=== PATIENT | male | born 1965 | race Caucasian/White ===

== ENCOUNTER 2016-04-07 15:06 | Inpatient (IN) | payer MEDICARE, MEDICAID ==
[~2016-04-07] VITALS: Ht 175.3 cm; Wt 112.5 kg
[2016-04-07] MEDS ORDERED: MORPHINE SULFATE INJ 4 MG/ML DISP.SYRIN ONE ×2 (15:28→16:25)
[2016-04-07] MEDS ORDERED: IV NS 0.9% 500 ML IV ONE (15:28)
[2016-04-07] MEDS ORDERED: IV SET PRIMARY 1 EA INFUS.SET MC ONE (15:28)
[2016-04-07] MEDS ORDERED: ONDANSETRON HCL/PF 4 MG/2 ML VIAL ONE (15:28)
[2016-04-07] MEDS ORDERED: ONDANSETRON HCL/PF 4 MG/2 ML VIAL IVP ONE (15:30)
[2016-04-07] MEDS ORDERED: IV NS 0.9% 500 ML BAG IV ONE (15:30)
[2016-04-07] MEDS ORDERED: MORPHINE SULFATE INJ 2 MG/ML DISP.SYRIN IV ONE (15:30)
[2016-04-07] MEDS ORDERED: MAG30ORA PO (15:37)
[2016-04-07] MEDS ORDERED: PANT40TA4 PO (15:37)
[2016-04-07] MEDS ORDERED: TIZA4TAB4 PO (15:37)
[2016-04-07] MEDS ORDERED: HYDR2TAB35 PO (15:37)
[2016-04-07] MEDS ORDERED: HYDR-548 PO (15:37)
[2016-04-07] MEDS ORDERED: BACL10TA PO (15:37)
[2016-04-07] MEDS ORDERED: DOCU-270 PO (15:37)
[2016-04-07] MEDS ORDERED: METH1ADH6 TP (15:37)
[2016-04-07] MEDS ORDERED: LUBI24CA7 PO (15:37)
[2016-04-07] MEDS ORDERED: GABA-534 PO (15:37)
[2016-04-07] MEDS ORDERED: POLY17PO4 PO (15:37)
[2016-04-07] MEDS ORDERED: BISA10SU8 RC (15:37)
[2016-04-07] MEDS ORDERED: MELA3TAB PO (15:37)
[2016-04-07] MEDS ORDERED: LORA10TA7 PO (15:37)
[2016-04-07] MEDS ORDERED: TRAZ-144 PO (15:37)
[2016-04-07] MEDS ORDERED: SENN8.6T6 PO (15:37)
[2016-04-07] MEDS ORDERED: MAGN400O6 PO (15:38)
[2016-04-07] MEDS ORDERED: NA P133E RC (15:38)
[2016-04-07 15:39] LABS: BASOPHILS # (AUTO) 0.1 /CMM (0.0-0.2); BASOPHILS % (AUTO) 0.7 % (0.0-2.0); DIFF TOTAL % 100 %; EOSINOPHILS # (AUTO) 0.1 /CMM (0.0-0.7); EOSINOPHILS % (AUTO) 1.2 % (0.0-6.0); HEMATOCRIT 47 % (39-51); HEMOGLOBIN 15.9 g/dL (13.5-17.5); LYMPHOCYTES # (AUTO) 1.4 /CMM (0.8-4.8); MEAN CORPUSCULAR HEMOGLOBIN 29 PG (26.0-33.0); MEAN CORPUSCULAR HGB CONC 34 g/dl (31.0-36.0); MEAN CORPUSCULAR VOLUME 85 fL (80-96); MONOCYTES # (AUTO) 0.4 /CMM (0.1-1.30); MONOCYTES % (AUTO) 5.6 % (2.0-12.0); NEUTROPHILS # (AUTO) 5.6 /CMM (1.8-8.9); NEUTROPHILS % (AUTO) 73.5 % (43.0-81.0); PLATELET COUNT (AUTO) 245 /CMM (150-450); RED BLOOD CELL COUNT(AUTO) 5.46 MIL/uL (4.5-6.0); WHITE BLOOD COUNT (AUTO) 7.6 K/uL (4.3-11.0)
[2016-04-07 15:48] LABS: ANION GAP 12 (5-14); CALCIUM, SERUM 9.1 mg/dL (8.5-10.1); CARBON DIOXIDE 27 mmol/L (21-32); CHLORIDE 104 mmol/L (98-107); CREATININE 1.3 mg/dL (0.6-1.3); GFR 59 mL/min (>60); GLUCOSE 114 mg/dL (74-106); POTASSIUM 4.1 mmol/L (3.5-5.1); SODIUM SERUM 139 mmol/L (136-145); UREA NITROGEN, BLOOD 18 mg/dL (7-18)
[2016-04-07 15:52] LABS: INR 0.97 (0.87-1.13); PROTHROMBIN TIME 10.2 SECS (9.5-12.7)
[2016-04-07 15:58] LABS: TROPONIN I < 0.017 ng/mL (0.00-0.056)
[2016-04-07] MEDS ORDERED: MORPHINE SULFATE INJ 10 MG/ML DISP.SYRIN IV ONE (16:30)
[2016-04-07 17:30] VITALS: BP 123/73
[2016-04-07] MEDS ORDERED: IV NS 0.9% 1,000 ML IV PRN (17:30)
[2016-04-07] MEDS ORDERED: ACETAMINOPHEN 325 MG TABLET PO PRN (17:30)
[2016-04-07] MEDS ORDERED: ONDANSETRON HCL/PF 4 MG/2 ML VIAL IVP PRN (17:30)
[2016-04-07] MEDS ORDERED: ZOLPIDEM TARTRATE 5 MG TABLET PO PRN (17:30)
[2016-04-07] MEDS ORDERED: HYDROCODONE/APAP 5/325MG 1 EACH TABLET PO PRN (17:30)
[2016-04-07] MEDS ORDERED: MAG HYDROX/AL HYDROX/SIMETH 30 ML UDC PO PRN (17:30)
[2016-04-07] MEDS ORDERED: MAGNESIUM HYDROXIDE 30 ML UDC PO PRN (17:30)
[2016-04-07] MEDS ORDERED: Z GUARD REMEDY 2 OZ OINT TP PRN (17:30)
[2016-04-07] MEDS ORDERED: BISACODYL SUPP (10 MG) 10 MG/SUPP.RECT SUPP.RECT RC PRN (18:00)
[2016-04-07] MEDS ORDERED: LORATADINE 10 MG TABLET PO PRN (18:00)
[2016-04-07] MEDS ORDERED: NA PHOS,M-B/NA PHOS,DI-BA 1 EA ENEMA RC PRN (18:00)
[2016-04-07] MEDS ORDERED: HYDROMORPHONE HCL 2 MG TABLET PO PRN (18:00)
[2016-04-07] MEDS ORDERED: IV SET PRIMARY PUMP SET 1 EA INFUS.SET MC ONE (18:27)
[2016-04-07] MEDS: GABAPENTIN 300 MG CAPSULE PO SCH (18:39)
[2016-04-07] MEDS: ENOXAPARIN SODIUM 40 MG/0.4 ML DISP.SYRIN SQ SCH (18:41)
[2016-04-07 20:00] VITALS: BP 127/83
[2016-04-07] MEDS: TIZANIDINE HCL 4 MG TABLET PO SCH (21:00)
[2016-04-07] MEDS: HYDROMORPHONE 1 MG/1 ML DISP.SYRIN IV PRN (21:21)
[2016-04-07] MEDS: TRAZODONE 50 MG TABLET PO SCH (21:25)
[2016-04-08] VITALS: BP 127/56
[2016-04-08] MEDS: GABAPENTIN 300 MG CAPSULE PO SCH ×5 (00:15→21:59)
[2016-04-08] MEDS: HYDROMORPHONE 1 MG/1 ML DISP.SYRIN IV PRN ×3 (01:45→22:00)
[2016-04-08 04:00] VITALS: BP 113/48
[2016-04-08] MEDS: TIZANIDINE HCL 4 MG TABLET PO SCH ×3 (05:00→21:59)
[2016-04-08 07:19] LABS: BASOPHILS % (AUTO) 0.5 % (0.0-2.0); DIFF TOTAL % 100 %; EOSINOPHILS # (AUTO) 0.2 /CMM (0.0-0.7); EOSINOPHILS % (AUTO) 2.6 % (0.0-6.0); HEMATOCRIT 43 % (39-51); HEMOGLOBIN 14.5 g/dL (13.5-17.5); LYMPHOCYTES % (AUTO) 31.5 % (20.0-44.0); MEAN CORPUSCULAR HEMOGLOBIN 29 PG (26.0-33.0); MEAN CORPUSCULAR HGB CONC 34 g/dl (31.0-36.0); MEAN CORPUSCULAR VOLUME 86 fL (80-96); MONOCYTES # (AUTO) 0.4 /CMM (0.1-1.30); MONOCYTES % (AUTO) 6.1 % (2.0-12.0); NEUTROPHILS # (AUTO) 3.8 /CMM (1.8-8.9); NEUTROPHILS % (AUTO) 59.3 % (43.0-81.0); PLATELET COUNT (AUTO) 208 /CMM (150-450); RED BLOOD CELL COUNT(AUTO) 5.01 MIL/uL (4.5-6.0); WHITE BLOOD COUNT (AUTO) 6.5 K/uL (4.3-11.0)
[2016-04-08 07:57] LABS: CALCIUM, SERUM 8.4 mg/dL (8.5-10.1); CREATININE 1.1 mg/dL (0.6-1.3); PHOSPHORUS 3.6 mg/dL (2.5-4.9); POTASSIUM 3.9 mmol/L (3.5-5.1)
[2016-04-08 08:00] VITALS: BP 132/78
[2016-04-08] MEDS: BACLOFEN (10 MG) 10 MG TABLET PO SCH ×3 (08:22→17:23)
[2016-04-08] MEDS: SENNOSIDES 8.6 MG TABLET PO SCH ×2 (08:22→17:23)
[2016-04-08] MEDS: PANTOPRAZOLE 40 MG TABLET.DR PO SCH (08:22)
[2016-04-08] MEDS: DOCUSATE SODIUM 100 MG CAPSULE PO SCH ×2 (08:22→17:24)
[2016-04-08] MEDS: ASPIRIN 81 MG TAB.CHEW PO SCH (09:57)
[2016-04-08 12:00] VITALS: BP 118/48
[2016-04-08 16:00] VITALS: BP 131/77
[2016-04-08 20:00] VITALS: BP 129/77
[2016-04-08] MEDS: ENOXAPARIN SODIUM 40 MG/0.4 ML DISP.SYRIN SQ SCH (21:58)
[2016-04-08] MEDS: TRAZODONE 50 MG TABLET PO SCH (22:00)
[2016-04-09] VITALS: BP 126/91
[2016-04-09 04:00] VITALS: BP 126/74
[2016-04-09] MEDS: TIZANIDINE HCL 4 MG TABLET PO SCH ×3 (04:53→20:38)
[2016-04-09] MEDS: GABAPENTIN 300 MG CAPSULE PO SCH ×3 (06:00→17:46)
[2016-04-09] MEDS: HYDROMORPHONE 1 MG/1 ML DISP.SYRIN IV PRN ×2 (06:54→12:52)
[2016-04-09 08:00] VITALS: BP 172/55
[2016-04-09 08:04] LABS: BASOPHILS % (AUTO) 0.6 % (0.0-2.0); DIFF TOTAL % 100 %; EOSINOPHILS # (AUTO) 0.2 /CMM (0.0-0.7); EOSINOPHILS % (AUTO) 2.4 % (0.0-6.0); HEMATOCRIT 46 % (39-51); HEMOGLOBIN 15.3 g/dL (13.5-17.5); LYMPHOCYTES # (AUTO) 2.2 /CMM (0.8-4.8); LYMPHOCYTES % (AUTO) 30.6 % (20.0-44.0); MEAN CORPUSCULAR HEMOGLOBIN 29 PG (26.0-33.0); MEAN CORPUSCULAR HGB CONC 33 g/dl (31.0-36.0); MEAN CORPUSCULAR VOLUME 87 fL (80-96); MONOCYTES # (AUTO) 0.6 /CMM (0.1-1.30); MONOCYTES % (AUTO) 8.4 % (2.0-12.0); NEUTROPHILS # (AUTO) 4.1 /CMM (1.8-8.9); PLATELET COUNT (AUTO) 213 /CMM (150-450)
[2016-04-09 08:30] LABS: CALCIUM, SERUM 9.1 mg/dL (8.5-10.1); POTASSIUM 4.1 mmol/L (3.5-5.1)
[2016-04-09] MEDS ORDERED: REGADENOSON 0.4 MG/5 ML DISP.SYRIN IVP ONE (09:36)
[2016-04-09] MEDS: SENNOSIDES 8.6 MG TABLET PO SCH ×2 (10:50→17:46)
[2016-04-09] MEDS: BACLOFEN (10 MG) 10 MG TABLET PO SCH ×3 (10:50→17:46)
[2016-04-09] MEDS: DOCUSATE SODIUM 100 MG CAPSULE PO SCH ×2 (10:50→17:46)
[2016-04-09] MEDS: ASPIRIN 81 MG TAB.CHEW PO SCH (10:50)
[2016-04-09] MEDS: PANTOPRAZOLE 40 MG TABLET.DR PO SCH (10:50)
[2016-04-09 12:00] VITALS: BP 133/53
[2016-04-09 16:00] VITALS: BP_SYST 125; BP_DIAS 43; BP_DIAS 58
[2016-04-09 20:00] VITALS: BP 134/59
[2016-04-09] MEDS: ENOXAPARIN SODIUM 40 MG/0.4 ML DISP.SYRIN SQ SCH (20:42)
== END 2016-04-09 21:35 | DRG 313 ==
LOC: ER 15:08 → TELE1 17:27
PROVIDERS: ADMIT Internal Medicine; ATTEND Internal Medicine
DX: R07.89 Other chest pain (principal); E78.5 Hyperlipidemia, unspecified; G89.29 Other chronic pain; K21.9 Gastro-esophageal reflux disease without esophagitis; G62.9 Polyneuropathy, unspecified; E66.9 Obesity, unspecified; Z87.891 Personal history of nicotine dependence; Z87.442 Personal history of urinary calculi; Z68.36 Body mass index [BMI] 36.0-36.9, adult; E11.22 Type 2 diabetes mellitus with diabetic chronic kidney disease; I12.9 Hypertensive chronic kidney disease with stage 1 through stage 4 chronic kidney disease, or unspecified chronic kidney disease; F32.9 Major depressive disorder, single episode, unspecified; N18.9 Chronic kidney disease, unspecified; M48.00 Spinal stenosis, site unspecified; F44.4 Conversion disorder with motor symptom or deficit
CPT/HCPCS: 36415; 71010-TC; 80048-TC; 80061-TC; 83735-TC; 84100-TC; 84484-TC; 85025-TC; 85730-TC; 87081-TC; 93307-TC; A4606; A6253; A6403; A9502; J1170; J1650; J2270; J2405; J2785; J7030; J7040; Z7610

== ENCOUNTER 2017-01-09 18:56 | Inpatient (IN) | payer MEDICARE, MEDICAID ==
[~2017-01-09] VITALS: Ht 203.2 cm; Wt 135.2 kg
[~2017-01-09 18:56] MED LIST: BACL10TA PO; BISA10SU8 RC; DOCU-270 PO; GABA-534 PO; HYDR-548 PO; HYDR2TAB35 PO; LORA10TA7 PO; LUBI24CA7 PO; MAG30ORA PO; MAGN400O6 PO; MELA3TAB PO; METH1ADH6 TP; NA P133E RC; PANT40TA4 PO; POLY17PO4 PO; SENN8.6T6 PO; TIZA4TAB4 PO; TRAZ-144 PO
--- NOTE | 2017-01-09 19:06 | NUR ---
PATIENT WAS SENT BY DR. GALLAGHER VIA PRIVATE AMBULANCE FROM [facility] DT POSSIBLE PNEUMONIA. PATIENT RECEIVED AAO4. APPEARS IN NO APPARENT DISTRESS. RESPIRATION EVEN AND UNLABORED. AFEBRILE. PATIENT REPORTED OCCASIONAL COUGHS. NO CHEST PAIN. VSS
--- NOTE | 2017-01-09 19:08 | NUR ---
LEON AT BEDSIDE
[2017-01-09] MEDS ORDERED: TIZA4CAP PO (19:15)
[2017-01-09] MEDS ORDERED: NORT10CA PO (19:15)
[2017-01-09] MEDS ORDERED: BACL20TA PO (19:15)
--- NOTE | 2017-01-09 19:15 | NUR ---
started a saline lock on the left hand g20, blood drawn and sent to lab.
[2017-01-09] MEDS ORDERED: AZIT250T6 PO (19:17)
[2017-01-09] MEDS ORDERED: VANCOMYCIN 1 GM VIAL ONE (19:23)
[2017-01-09] MEDS ORDERED: ONDANSETRON HCL/PF 4 MG/2 ML VIAL ONE (19:23)
[2017-01-09] MEDS ORDERED: IPRATROPIUM NEB FS 0.5 MG/2.5 ML AMPUL.NEB ONE (19:25)
[2017-01-09] MEDS ORDERED: ALBUTEROL FS 2.5 MG/3 ML VIAL.NEB ONE (19:25)
[2017-01-09] MEDS ORDERED: methylPREDNISolone SOD SUCC 125 MG/2ML VIAL IV ONE (19:30)
[2017-01-09] MEDS ORDERED: IPRATROPIUM NEB FS 0.5 MG/2.5 ML AMPUL.NEB NEB ONE (19:30)
[2017-01-09] MEDS ORDERED: VANCOMYCIN 1 GM in IV D5W 250 ML IV ONE (19:30)
[2017-01-09] MEDS ORDERED: ALBUTEROL FS 2.5 MG/3 ML VIAL.NEB CONTNEB ONE (19:30)
[2017-01-09] MEDS ORDERED: IV NS 0.9% 500 ML BAG IV ONE (19:30)
[2017-01-09] MEDS ORDERED: ONDANSETRON HCL/PF 4 MG/2 ML VIAL IVP ONE (19:30)
[2017-01-09] MEDS ORDERED: PIPERACILLIN /TAZOBACTAM 4.5 G in IV D5W 50 ML IV ONE (19:30)
[2017-01-09] MEDS ORDERED: MORPHINE SULFATE INJ 2 MG/ML DISP.SYRIN IV ONE (19:30)
[2017-01-09] MEDS ORDERED: methylPREDNISolone SOD SUCC 125 MG/2ML VIAL ONE (19:48)
[2017-01-09] MEDS ORDERED: HYDROMORPHONE INJ 2 MG/ML DISP.SYRIN ONE (19:50)
[2017-01-09 19:55] LABS: BASOPHILS # (AUTO) 0.1 /CMM (0.0-0.2); BASOPHILS % (AUTO) 0.9 % (0.0-2.0); EOSINOPHILS # (AUTO) 0.1 /CMM (0.0-0.7); EOSINOPHILS % (AUTO) 1.5 % (0.0-6.0); HEMATOCRIT 46 % (39-51); HEMOGLOBIN 15.4 g/dL (13.5-17.5); LYMPHOCYTES # (AUTO) 2.5 /CMM (0.8-4.8); LYMPHOCYTES % (AUTO) 27.8 % (20.0-44.0); MEAN CORPUSCULAR HEMOGLOBIN 29 PG (26.0-33.0); MEAN CORPUSCULAR HGB CONC 34 g/dl (31.0-36.0); MEAN CORPUSCULAR VOLUME 86 fL (80-96); MONOCYTES # (AUTO) 0.6 /CMM (0.1-1.30); MONOCYTES % (AUTO) 6.3 % (2.0-12.0); NEUTROPHILS # (AUTO) 5.6 /CMM (1.8-8.9); NEUTROPHILS % (AUTO) 63.5 % (43.0-81.0); PLATELET COUNT (AUTO) 277 /CMM (150-450); RDW COEFFICIENT OF VARIATION 12.3 (11.5-15.0); RED BLOOD CELL COUNT(AUTO) 5.34 MIL/uL (4.5-6.0); WHITE BLOOD COUNT (AUTO) 8.9 K/uL (4.3-11.0)
[2017-01-09] MEDS ORDERED: HYDROMORPHONE 1 MG/1 ML DISP.SYRIN IV ONE (20:00)
[2017-01-09 20:17] LABS: CALCIUM, SERUM 9.3 mg/dL (8.5-10.1); CARBON DIOXIDE 28 mmol/L (21-32); CHLORIDE 104 mmol/L (98-107); CREATININE 1.1 mg/dL (0.6-1.3); GLUCOSE 112 mg/dL (74-106); SODIUM SERUM 141 mmol/L (136-145); UREA NITROGEN, BLOOD 18 mg/dL (7-18)
[2017-01-09 20:19] LABS: TROPONIN I < 0.017 ng/mL (0.00-0.056)
[2017-01-09 20:22] LABS: ALANINE AMINOTRANSFERASE 46 U/L (12-78); ALBUMIN 3.9 g/dL (3.4-5.0); ALKALINE PHOSPHATASE 71 U/L (46-116); ASPARTATE AMINOTRANSFERASE 23 U/L (15-37); BILIRUBIN,DIRECT 0.1 mg/dL (0.0-0.2); BILIRUBIN,TOTAL 0.8 mg/dL (0.2-1.0); TOTAL PROTEIN, SERUM 7.3 g/dL (6.4-8.2)
--- NOTE | 2017-01-09 20:48 | NUR ---
DR PADGETT WAS PAGED
[2017-01-09 21:00] VITALS: BP 123/72
--- NOTE | 2017-01-09 21:13 | NUR ---
DAYRON MALLOY WAS PAGED FOR PANEL
--- NOTE | 2017-01-09 21:18 | NUR ---
TELE ROOM 320-1
--- NOTE | 2017-01-09 21:33 | NUR ---
Report given to Ajit ORTIZ for tele admission and carla.
--- NOTE | 2017-01-09 21:40 | NUR ---
transferred patient to tele bed 313-1 via [facility] protocol, no incident noted.
[2017-01-09] MEDS ORDERED: MORPHINE SULFATE INJ 10 MG/ML DISP.SYRIN ONE (22:34)
[2017-01-09] MEDS: MORPHINE SULFATE INJ 2 MG/ML DISP.SYRIN IV PRN (22:50)
[2017-01-09] MEDS ORDERED: MAGNESIUM HYDROXIDE 30 ML UDC PO PRN (23:00)
[2017-01-09] MEDS ORDERED: MAG HYDROX/AL HYDROX/SIMETH 30 ML UDC PO PRN (23:00)
[2017-01-09] MEDS ORDERED: BISACODYL SUPP (10 MG) 10 MG/SUPP.RECT SUPP.RECT RC PRN (23:00)
[2017-01-09] MEDS ORDERED: NA PHOS,M-B/NA PHOS,DI-BA 1 EA ENEMA RC PRN (23:00)
[2017-01-09] MEDS ORDERED: LORATADINE 10 MG TABLET PO PRN (23:00)
[2017-01-09] MEDS ORDERED: Medication Not On Formulary EA (Melatonin 3 MG) PO PRN (23:00)
[2017-01-09] MEDS ORDERED: HYDROCODONE/APAP 10/325MG 1 EA TABLET PO PRN (23:00)
[2017-01-09] MEDS ORDERED: ACETAMINOPHEN 325 MG TABLET PO PRN (23:30)
[2017-01-09] MEDS ORDERED: ZOLPIDEM TARTRATE 5 MG TABLET PO PRN (23:30)
[2017-01-09] MEDS ORDERED: ONDANSETRON HCL/PF 4 MG/2 ML VIAL IVP PRN (23:30)
[2017-01-10] VITALS: BP 128/75
[2017-01-10] MEDS: ALBUTEROL FS 2.5 MG/0.5 ML VIAL.NEB NEB SCH ×5 (00:17→19:20)
[2017-01-10] MEDS: IPRATROPIUM NEB FS 0.5 MG/2.5 ML AMPUL.NEB NEB SCH ×4 (00:20→19:20)
[2017-01-10] MEDS ORDERED: methylPREDNISolone SOD SUCC 125 MG/2ML VIAL ONE (00:38)
[2017-01-10] MEDS ORDERED: GABAPENTIN 300 MG CAPSULE ONE ×2 (00:39→06:05)
[2017-01-10 00:52] LABS: ABG BASE EXCESS 2.7 mmol/L; ABG OXYGEN SATURATION 95.9 % (92.0-98.5); ABG PCO2 50.4 mmHg (35.0-45.0); ABG PH 7.377 (7.350-7.450); ABG PO2 88.5 mmHg (75.0-100.0); AaDO2 109.7 mmHg; COHb 0.7 % (0.5-1.5); O2Hb 94.3 % (94.0-97.0); SITE, ABG Right Radial; VENT MODE, BG 3 L NC
[2017-01-10] MEDS: GABAPENTIN 300 MG CAPSULE PO SCH ×5 (01:19→23:50)
[2017-01-10] MEDS: methylPREDNISolone SOD SUCC 125 MG/2ML VIAL IV SCH ×4 (01:19→16:07)
[2017-01-10 04:00] VITALS: BP 126/74
[2017-01-10] MEDS ORDERED: GUAIFENESIN/CODEINE 10 ML UDC PO PRN (05:00)
[2017-01-10] MEDS ORDERED: TIZANIDINE HCL 4 MG TABLET ONE (05:51)
[2017-01-10] MEDS: TIZANIDINE HCL 4 MG TABLET PO SCH ×4 (05:52→21:51)
[2017-01-10] MEDS ORDERED: MORPHINE SULFATE INJ 10 MG/ML DISP.SYRIN ONE (06:03)
[2017-01-10] MEDS: MORPHINE SULFATE INJ 2 MG/ML DISP.SYRIN IV PRN (06:07)
--- NOTE | 2017-01-10 06:34 | NUR ---
PECAN PICKER NOTES AWAKE & RESPONSIVE. NOT IN ANY DISTRESS. NO SOB NOTED. DENIES ANY PAIN OR DISCOMFORT AT THIS TIME. ON TELE SR @ 75 WITH IV-HL PATENT & INTACT. MONITORED ACCORDINGLY. CALL LIGHT WITHIN REACH. BED IN LOWEST POSITION. SR UP X 3 FOR SAFETY WITH BED ALARM ON. WILL ENDORSE TO NEXT SHIFT.
[2017-01-10 07:14] LABS: HEMATOCRIT 44 % (39-51); HEMOGLOBIN 14.8 g/dL (13.5-17.5); LYMPHOCYTES # (AUTO) 0.9 /CMM (0.8-4.8); LYMPHOCYTES % (AUTO) 14.5 % (20.0-44.0); MEAN CORPUSCULAR HEMOGLOBIN 29 PG (26.0-33.0); MEAN CORPUSCULAR HGB CONC 34 g/dl (31.0-36.0); MEAN CORPUSCULAR VOLUME 86 fL (80-96); MONOCYTES % (AUTO) 0.6 % (2.0-12.0); NEUTROPHILS # (AUTO) 5.1 /CMM (1.8-8.9); NEUTROPHILS % (AUTO) 84.9 % (43.0-81.0); PLATELET COUNT (AUTO) 228 /CMM (150-450); RDW COEFFICIENT OF VARIATION 13.2 (11.5-15.0); RED BLOOD CELL COUNT(AUTO) 5.07 MIL/uL (4.5-6.0); WHITE BLOOD COUNT (AUTO) 6.1 K/uL (4.3-11.0)
--- NOTE | 2017-01-10 07:20 | NUR ---
RN OPEN NOTES RECEIVED REPORT FROM QUALITY CONTROLLER NURSE. PATIENT IS IN BED. PATIENT IS ALERT AND ORIENTED TO NAME, PLACE AND TIME. NO SIGNS AND SYMPTOMS OF DISTRESS. WILL CONTINUE TO MONITOR AND ASSESS PATIENT THROUGH OUT MY SHIFT
[2017-01-10] MEDS: PANTOPRAZOLE 40 MG TABLET.DR PO SCH (07:30)
[2017-01-10 07:37] LABS: ALBUMIN 3.5 g/dL (3.4-5.0); BILIRUBIN,TOTAL 0.7 mg/dL (0.2-1.0); CALCIUM, SERUM 9.4 mg/dL (8.5-10.1); CREATININE 1.1 mg/dL (0.6-1.3); POTASSIUM 4.3 mmol/L (3.5-5.1)
[2017-01-10 08:00] VITALS: BP 125/76
--- NOTE | 2017-01-10 08:20 | NUR ---
DR GALLAGHER AT BEDSIDE
[2017-01-10] MEDS ORDERED: METHYL SALICYLATE TP SCH (09:00)
[2017-01-10] MEDS ORDERED: MENTHOL TP SCH (09:00)
[2017-01-10] MEDS: GUAIFENESIN LA 600 MG TABLET.SA PO SCH ×2 (09:06→21:51)
[2017-01-10] MEDS: DOCUSATE SODIUM 100 MG CAPSULE PO SCH ×2 (09:06→16:07)
[2017-01-10] MEDS: BACLOFEN (10 MG) 10 MG TABLET PO SCH ×3 (09:06→16:09)
[2017-01-10] MEDS: SENNOSIDES 8.6 MG TABLET PO SCH ×2 (09:07→16:09)
[2017-01-10] MEDS: AZITHROMYCIN 250 MG TABLET PO SCH (09:07)
[2017-01-10] MEDS: HYDROMORPHONE INJ 2 MG/ML DISP.SYRIN IV PRN ×2 (14:07→22:04)
[2017-01-10] MEDS ORDERED: K PHOS NEUTRAL 250 MG TABLET PO ONE (15:30)
[2017-01-10 16:00] VITALS: BP 122/76
[2017-01-10] MEDS: NORTRIPTYLINE HCL 10 MG CAPSULE PO SCH (17:36)
--- NOTE | 2017-01-10 18:39 | NUR ---
RN CLOSING NOTES PATIENT IS ALERT AND ORIENTED TO NAME, PLACE AND TIME. NO SIGNS AND SYMPTOMS OF DISTRESS. IV SITE IS INTACT AND PATENT. BED IN LOW POSITION, LOCKED AND TWO SIDE RAILS ARE UP. CALL LIGHT WITHIN REACH FOR SAFETY. ALL NURSING CARE ANTICIPATED AND ATTENDED FOR. REPOSITIONED Q2HR. PATIENT REMAINED DRY AND CLEAN. WILL ENDORSE TO CANVASSING MANAGER NURSE
--- NOTE | 2017-01-10 19:25 | NUR ---
RN OPEN NOTES RECEIVED PATIENT AWAKE IN BED WITH FAMILY AT BEDSIDE. A/O X4. NO SIGNS OF DISTRESS OR DISCOMFORT. BREATHING EVEN AND UNLABORED. IV ACCESS IN L HAND PATENT AND INTACT, NO SIGNS OF REDNESS OR INFILTRATION. BED IN LOW LOCKED POSITION WITH SIDE RAILS X2. CALL LIGHT WITHIN REACH. WILL CONTINUE TO MONITOR.
[2017-01-10 20:00] VITALS: BP 131/73
[2017-01-10] MEDS ORDERED: TRAZODONE 50 MG TABLET PO SCH (22:00)
--- NOTE | 2017-01-10 22:04 | NUR ---
RN NOTES ADMINISTERED DILAUDID .25 MG ORDERED FOR PAIN 8/10 IN LEFT LOWER/UPPER EXTREMITY. VSS. WILL CONTINUE TO MONITOR.
[2017-01-11] MEDS: IPRATROPIUM NEB FS 0.5 MG/2.5 ML AMPUL.NEB NEB SCH ×4 (01:37→19:30)
[2017-01-11] MEDS: ALBUTEROL FS 2.5 MG/0.5 ML VIAL.NEB NEB SCH ×4 (01:37→19:30)
[2017-01-11] MEDS: HYDROMORPHONE INJ 2 MG/ML DISP.SYRIN IV PRN ×2 (04:24→15:23)
--- NOTE | 2017-01-11 04:24 | NUR ---
RN NOTES ADMINISTERED DILAUDID .25 MG ORDERED FOR GENERALIZED PAIN 10/10 FROM THE NECK DOWN. VSS. WILL CONTINUE TO MONITOR.
[2017-01-11] MEDS: TIZANIDINE HCL 4 MG TABLET PO SCH ×4 (05:31→20:47)
[2017-01-11] MEDS ORDERED: GABAPENTIN 300 MG CAPSULE ONE (05:57)
[2017-01-11] MEDS: GABAPENTIN 300 MG CAPSULE PO SCH ×4 (06:16→23:41)
[2017-01-11] MEDS: PANTOPRAZOLE 40 MG TABLET.DR PO SCH ×2 (06:18→08:41)
--- NOTE | 2017-01-11 06:37 | NUR ---
RN CLOSING NOTES PATIENT AWAKE IN BED. A/O X4. NO SIGNS OF DISTRESS OR DISCOMFORT. BREATHING EVEN AND UNLABORED. ON 2LPM O2 VIA NC. IV ACCESS IN L HAND PATENT AND INTACT, NO SIGNS OF REDNESS OR INFILTRATION. STATES PAIN 5/10 AND IS TOLERABLE AT THIS TIME. ALL NEEDS MET. NO SIGNIFICANT CHANGES THROUGH THE NIGHT. BED IN LOW LOCKED POSITION WITH SIDE RAILS X2. CALL LIGHT WITHIN REACH. WILL ENDORSE TO AM SHIFT FOR JOCELYN.
--- NOTE | 2017-01-11 07:20 | NUR ---
RN OPEN NOTES RECEIVED REPORT FROM TUBE TESTER NURSE. PATIENT IS IN BED, AWAKE, ALERT AND ORIENTED TO NAME, PLACE AND TIME. NO SIGNS AND SYMPTOMS OF DISTRESS. DENIED PAIN. WILL CONTINUE TO MONITOR AND ASSES PATIENT THROUGH OUT MY SHIFT
[2017-01-11 08:00] VITALS: BP 124/78
[2017-01-11] MEDS: GUAIFENESIN LA 600 MG TABLET.SA PO SCH ×2 (08:41→20:47)
[2017-01-11] MEDS: BACLOFEN (10 MG) 10 MG TABLET PO SCH ×3 (08:41→17:33)
[2017-01-11] MEDS: SENNOSIDES 8.6 MG TABLET PO SCH ×2 (08:41→17:32)
[2017-01-11] MEDS: methylPREDNISolone SOD SUCC 125 MG/2ML VIAL IV SCH ×2 (08:41→17:32)
[2017-01-11] MEDS: AZITHROMYCIN 250 MG TABLET PO SCH (08:41)
[2017-01-11] MEDS: DOCUSATE SODIUM 100 MG CAPSULE PO SCH ×2 (08:41→17:32)
--- NOTE | 2017-01-11 14:00 | NUR ---
PATIENT TRANSFERRED FROM FROM [facility]- TO [facility]-
[2017-01-11 16:00] VITALS: BP 137/82
[2017-01-11] MEDS: NORTRIPTYLINE HCL 10 MG CAPSULE PO SCH (17:33)
--- NOTE | 2017-01-11 18:43 | NUR ---
RN CLOSING NOTES PATIENT IS ALERT AND ORIENTED TO NAME, PLACE AND TIME. NO SIGNS AND SYMPTOMS OF DISTRESS. IV SITE IS INTACT AND PATENT. BED IN LOW POSITION, LOCKED AND TWO SIDE RAILS ARE UP. CALL LIGHT WITHIN REACH FOR SAFETY. ALL NURSING CARE ANTICIPATED AND ATTENDED FOR. REPOSITIONED Q2HR. PATIENT REMAINED DRY AND CLEAN. WILL ENDORSE TO UPTWIST SPINNER NURSE
--- NOTE | 2017-01-11 19:30 | NUR ---
RN NOTES RECEIVED PATIENT IN BED AWAKE, AO X 3, ABLE TO MAKE NEEDS KNOWN. NO ACUTE DISTRESS NOTED. DENIES ANY PAIN AT THIS TIME. IV SITE PATENT, INTACT; FLUSHED. SAFETY REMINDERS GIVEN. ON LOW BED WITH BILATERAL UPPER SIDE RAILS UP. CALL LIGHT WITHIN EASY REACH. WILL CONTINUE TO MONITOR.
[2017-01-11 20:00] VITALS: BP 141/100
[2017-01-11 20:33] VITALS: BP 141/100
[2017-01-12] MEDS: ALBUTEROL FS 2.5 MG/0.5 ML VIAL.NEB NEB SCH ×3 (02:06→13:01)
[2017-01-12] MEDS: IPRATROPIUM NEB FS 0.5 MG/2.5 ML AMPUL.NEB NEB SCH ×3 (02:06→13:01)
[2017-01-12] MEDS: GABAPENTIN 300 MG CAPSULE PO SCH ×2 (05:25→13:02)
[2017-01-12] MEDS: TIZANIDINE HCL 4 MG TABLET PO SCH ×2 (05:25→13:38)
--- NOTE | 2017-01-12 06:07 | NUR ---
RN NOTES PATIENT ASLEEP, EASILY AROUSABLE. RESPIRATIONS EVEN. NO SIGNS OF PAIN NOTED. NO SYMPTOMS OF HYPER/HYPOGLYCEMIA. DUE MEDS GIVEN WITH NO ASE NOTED. NEEDS ATTENDED. SAFETY PRECAUTIONS AND COMFORT MEASURES IN PLACE. WILL GIVE REPORT TO DAY SHIFT FOR CONTINUITY OF CARE.
[2017-01-12 08:00] VITALS: BP 140/72
[2017-01-12] MEDS: methylPREDNISolone SOD SUCC 125 MG/2ML VIAL IV SCH (09:19)
[2017-01-12] MEDS: GUAIFENESIN LA 600 MG TABLET.SA PO SCH (09:19)
[2017-01-12] MEDS: AZITHROMYCIN 250 MG TABLET PO SCH (09:19)
[2017-01-12] MEDS: DOCUSATE SODIUM 100 MG CAPSULE PO SCH (09:20)
[2017-01-12] MEDS: SENNOSIDES 8.6 MG TABLET PO SCH (09:20)
[2017-01-12] MEDS: BACLOFEN (10 MG) 10 MG TABLET PO SCH ×2 (09:20→13:38)
[2017-01-12] MEDS: PANTOPRAZOLE 40 MG TABLET.DR PO SCH (09:22)
--- NOTE | 2017-01-12 14:30 | NUR ---
AT BEDSIDE ALL DAY. IN AND DISCHARGE ORDER WRITTEN.ALL PAPERWORK SIGNED,INCLUDING BELONGING LIST.DRIVERS HERE,GIVEN REPORT,REPORT CALLED TO FACILITY.TAKEN VIA AMB. TO FACILITY.
== END 2017-01-12 14:50 | DRG 190 ==
LOC: ER 18:57 → TELE 21:24 → MED 01-10 22:31
PROVIDERS: ADMIT Internal Medicine; ATTEND Internal Medicine
DX: J44.0 Chronic obstructive pulmonary disease with (acute) lower respiratory infection (principal); J15.9 Unspecified bacterial pneumonia; G62.9 Polyneuropathy, unspecified; J44.1 Chronic obstructive pulmonary disease with (acute) exacerbation; R07.89 Other chest pain; M48.00 Spinal stenosis, site unspecified; E78.5 Hyperlipidemia, unspecified; E11.9 Type 2 diabetes mellitus without complications; E66.9 Obesity, unspecified; F17.200 Nicotine dependence, unspecified, uncomplicated; G89.29 Other chronic pain; I10 Essential (primary) hypertension; Z87.442 Personal history of urinary calculi; K21.9 Gastro-esophageal reflux disease without esophagitis; Z79.899 Other long term (current) drug therapy; Z98.1 Arthrodesis status; Z68.32 Body mass index [BMI] 32.0-32.9, adult
CPT/HCPCS: 36415; 36600; 71010-TC; 80048-TC; 80053-TC; 80076-TC; 82803-TC; 83605-TC; 83735-TC; 84100-TC; 84484-TC; 85025-TC; 87040-TC; 87081-TC; 93307-TC; 94799-TC; A4606; A6403; J1170; J2270; J2405; J2543; J2930; J3370; J7040; J7060; Z7610

== ENCOUNTER 2017-05-14 13:43 | Outpatient (CLI) | payer MEDICARE, MEDICAID ==
[~2017-05-14 13:43] MED LIST changes: -BACL10TA PO; +BACL20TA PO; -HYDR2TAB35 PO; +LUBI24CA5 PO; -LUBI24CA7 PO; +NORT10CA PO; +SENN-167 PO; -SENN8.6T6 PO; +TIZA4CAP PO
== END 2017-05-14 23:59 | disposition home or self-care (01) ==
LOC: MSC 13:43
PROVIDERS: ATTEND Anesthesiology
DX: M47.12 Other spondylosis with myelopathy, cervical region (principal); G89.29 Other chronic pain; M79.2 Neuralgia and neuritis, unspecified; G82.20 Paraplegia, unspecified; G47.30 Sleep apnea, unspecified; M62.81 Muscle weakness (generalized)

== ENCOUNTER 2017-05-29 07:44 | Day surgery (SDC) | payer MEDICARE, MEDICAID ==
[~2017-05-29 07:44] MED LIST changes: -TRAZ-144 PO; +TRAZ-182 PO
[2017-05-29] MEDS ORDERED: LIDOCAINE 1% INJ 50 ML MDV IJ ONE (10:11)
[2017-05-29] MEDS ORDERED: methylPREDNISolone ACETATE 80 MG/ML VIAL ONE (10:11)
[2017-05-29] MEDS ORDERED: BUPIVACAINE 0.25% 75 MG/30 ML VIAL ONE (10:11)
== END 2017-05-29 11:00 ==
LOC: DS 07:44
PROVIDERS: ATTEND Anesthesiology
DX: M17.12 Unilateral primary osteoarthritis, left knee (principal); G47.30 Sleep apnea, unspecified; G82.20 Paraplegia, unspecified
CPT/HCPCS: 73560-TC; A6209; J1040; J3490; Z7610

== ENCOUNTER 2017-06-11 13:30 | Outpatient (CLI) | payer MEDICARE, MEDICAID | END 2017-06-11 23:59 | LOC: MSC 13:30 | PROVIDERS: ATTEND Anesthesiology | DX: M17.12 Unilateral primary osteoarthritis, left knee (principal); G89.29 Other chronic pain; M79.2 Neuralgia and neuritis, unspecified; M54.2 Cervicalgia; G82.20 Paraplegia, unspecified; R25.2 Cramp and spasm; M47.10 Other spondylosis with myelopathy, site unspecified; G47.30 Sleep apnea, unspecified; Z79.891 Long term (current) use of opiate analgesic ==

== ENCOUNTER 2017-07-16 13:00 | Outpatient (CLI) | payer MEDICARE, MEDICAID | END 2017-07-16 23:59 | LOC: MSC 13:00 | PROVIDERS: ATTEND Anesthesiology | DX: M17.12 Unilateral primary osteoarthritis, left knee (principal); M47.10 Other spondylosis with myelopathy, site unspecified; G82.20 Paraplegia, unspecified; R25.2 Cramp and spasm; G89.29 Other chronic pain; M79.2 Neuralgia and neuritis, unspecified; Z79.891 Long term (current) use of opiate analgesic; G47.30 Sleep apnea, unspecified ==

== ENCOUNTER 2017-09-13 08:45 | Outpatient (CLI) | payer MEDICARE, MEDICAID | END 2017-09-13 23:59 | LOC: MSC 08:45 | PROVIDERS: ATTEND Anesthesiology | DX: M79.2 Neuralgia and neuritis, unspecified (principal); G89.29 Other chronic pain; M47.10 Other spondylosis with myelopathy, site unspecified; G82.20 Paraplegia, unspecified; R25.2 Cramp and spasm; G47.30 Sleep apnea, unspecified; M17.12 Unilateral primary osteoarthritis, left knee; M25.562 Pain in left knee; M54.2 Cervicalgia; Z79.891 Long term (current) use of opiate analgesic; Z79.899 Other long term (current) drug therapy ==

== ENCOUNTER 2017-10-24 09:37 | Outpatient (CLI) | payer MEDICARE, MEDICAID | END 2017-10-24 23:59 | disposition home or self-care (01) | LOC: CT 09:37 | DX: E27.9 Disorder of adrenal gland, unspecified (principal); N20.0 Calculus of kidney; K80.20 Calculus of gallbladder without cholecystitis without obstruction; I70.90 Unspecified atherosclerosis; J98.11 Atelectasis; I10 Essential (primary) hypertension; E11.9 Type 2 diabetes mellitus without complications; J45.909 Unspecified asthma, uncomplicated | CPT/HCPCS: 74150-TC ==

== ENCOUNTER → 2017-11-12 | Outpatient (CLI) | payer MEDICARE, MEDICAID ==
[~2017-11-12] MED LIST changes: +HYDR-4354 PO; -HYDR-548 PO; -SENN-167 PO; +SENN-168 PO
== END ==
LOC: MSC 15:30
PROVIDERS: ATTEND Anesthesiology
DX: M79.2 Neuralgia and neuritis, unspecified (principal); G82.20 Paraplegia, unspecified; M17.12 Unilateral primary osteoarthritis, left knee; M47.10 Other spondylosis with myelopathy, site unspecified; M54.2 Cervicalgia; G89.29 Other chronic pain; R25.2 Cramp and spasm; G47.30 Sleep apnea, unspecified; Z79.891 Long term (current) use of opiate analgesic

== ENCOUNTER → 2018-03-04 | Outpatient (CLI) | payer MEDICARE, MEDICAID | LOC: MSC 14:30 | PROVIDERS: ATTEND Anesthesiology | DX: G89.29 Other chronic pain (principal); M50.31 Other cervical disc degeneration, high cervical region; G82.20 Paraplegia, unspecified; R25.2 Cramp and spasm; G47.30 Sleep apnea, unspecified; M51.26 Other intervertebral disc displacement, lumbar region; M47.10 Other spondylosis with myelopathy, site unspecified; M17.12 Unilateral primary osteoarthritis, left knee; M25.562 Pain in left knee; Z79.891 Long term (current) use of opiate analgesic; Z79.899 Other long term (current) drug therapy ==

== ENCOUNTER 2018-03-18 14:27 | Outpatient (CLI) | payer MEDICARE, MEDICAID | END 2018-03-18 23:59 | LOC: MSC 14:27 | PROVIDERS: ATTEND Anesthesiology | DX: M79.2 Neuralgia and neuritis, unspecified (principal); G89.29 Other chronic pain; M54.2 Cervicalgia; M47.10 Other spondylosis with myelopathy, site unspecified; G82.20 Paraplegia, unspecified; R25.2 Cramp and spasm; M17.12 Unilateral primary osteoarthritis, left knee; Z79.891 Long term (current) use of opiate analgesic ==

== ENCOUNTER → 2018-04-15 | Outpatient (CLI) | payer MEDICARE, MEDICAID | LOC: MSC 15:00 | PROVIDERS: ATTEND Anesthesiology | DX: G89.29 Other chronic pain (principal); M79.2 Neuralgia and neuritis, unspecified; R25.2 Cramp and spasm; G82.20 Paraplegia, unspecified; M17.12 Unilateral primary osteoarthritis, left knee; G47.30 Sleep apnea, unspecified; M47.10 Other spondylosis with myelopathy, site unspecified; Z79.891 Long term (current) use of opiate analgesic; M51.36 Other intervertebral disc degeneration, lumbar region; M51.37 Other intervertebral disc degeneration, lumbosacral region ==

== ENCOUNTER 2018-05-13 13:00 | Outpatient (CLI) | payer MEDICARE | END 2018-05-13 23:59 | LOC: MSC 13:00 | PROVIDERS: ATTEND Anesthesiology | DX: G89.29 Other chronic pain (principal); M79.2 Neuralgia and neuritis, unspecified; M17.12 Unilateral primary osteoarthritis, left knee; R25.2 Cramp and spasm; G82.20 Paraplegia, unspecified; M47.10 Other spondylosis with myelopathy, site unspecified; M54.2 Cervicalgia; Z79.899 Other long term (current) drug therapy ==

== ENCOUNTER 2018-06-09 11:22 | Inpatient (IN) | payer MEDICARE, MEDICAID ==
[~2018-06-09] VITALS: Ht 203.2 cm; Wt 128.8 kg
--- NOTE | 2018-06-09 11:25 | NUR ---
PT AARON FROM [facility] C/O GEN PAIN, PT AAOX4, PT ON MONITOR, VSS, PENDING MD SUAREZ
[2018-06-09] MEDS ORDERED: NITROGLYCERIN PACKET 1 GM PACKET ONE (11:44)
[2018-06-09] MEDS ORDERED: ASPIRIN 325 MG TABLET ONE (11:45)
[2018-06-09] MEDS ORDERED: HYDR-4354 PO (11:52)
[2018-06-09] MEDS ORDERED: METH500T PO (11:52)
[2018-06-09] MEDS ORDERED: ACET-2605 PO (11:52)
[2018-06-09] MEDS ORDERED: NORT25CA PO (11:52)
[2018-06-09] MEDS ORDERED: OMEG1CAP PO (11:52)
[2018-06-09] MEDS ORDERED: CALC500T63 PO (11:52)
[2018-06-09] MEDS ORDERED: HYDR28.316 RC (11:52)
[2018-06-09] MEDS ORDERED: LOSA50TA3 PO (11:52)
[2018-06-09] MEDS ORDERED: IPRA3AMP23 IH (11:52)
[2018-06-09] MEDS ORDERED: CHOL100099 PO (11:52)
[2018-06-09] MEDS ORDERED: CYAN500L3 PO (11:52)
[2018-06-09] MEDS ORDERED: NITR0.4T48 SL (11:52)
[2018-06-09] MEDS ORDERED: SACC250C PO (11:52)
[2018-06-09] MEDS ORDERED: ACET-868 PO (11:52)
[2018-06-09] MEDS ORDERED: FLUT16SP16 BNOSTRILS (11:52)
[2018-06-09] MEDS ORDERED: MAGN250T2 PO (11:52)
[2018-06-09 11:53] LABS: BASOPHILS # (AUTO) 0.1 /CMM (0.0-0.2); BASOPHILS % (AUTO) 0.9 % (0.0-2.0); HEMATOCRIT 47 % (39-51); HEMOGLOBIN 16.2 g/dL (13.5-17.5); LYMPHOCYTES # (AUTO) 2.4 /CMM (0.8-4.8); LYMPHOCYTES % (AUTO) 36.2 % (20.0-44.0); MEAN CORPUSCULAR HGB CONC 35 g/dl (31.0-36.0); MEAN CORPUSCULAR VOLUME 86 fL (80-96); MONOCYTES # (AUTO) 0.5 /CMM (0.1-1.30); MONOCYTES % (AUTO) 7.8 % (2.0-12.0); NEUTROPHILS # (AUTO) 3.5 /CMM (1.8-8.9); NEUTROPHILS % (AUTO) 52.1 % (43.0-81.0); PLATELET COUNT (AUTO) 225 /CMM (150-450); RED BLOOD CELL COUNT(AUTO) 5.44 MIL/uL (4.5-6.0); WHITE BLOOD COUNT (AUTO) 6.7 K/uL (4.3-11.0)
[2018-06-09] MEDS ORDERED: NITROGLYCERIN PACKET 1 GM PACKET TD ONE (12:00)
[2018-06-09] MEDS ORDERED: ASPIRIN 325 MG TABLET PO ONE (12:00)
[2018-06-09 12:05] LABS: CALCIUM, SERUM 9.2 mg/dL (8.5-10.1); CARBON DIOXIDE 27 mmol/L (21-32); CHLORIDE 103 mmol/L (98-107); GLUCOSE 113 mg/dL (74-106); POTASSIUM 4.4 mmol/L (3.5-5.1); SODIUM SERUM 139 mmol/L (136-145); UREA NITROGEN, BLOOD 19 mg/dL (7-18)
[2018-06-09 12:11] LABS: ALANINE AMINOTRANSFERASE 26 U/L (12-78); ALKALINE PHOSPHATASE 72 U/L (46-116); ASPARTATE AMINOTRANSFERASE 19 U/L (15-37); BILIRUBIN,DIRECT 0.2 mg/dL (0.0-0.2); BILIRUBIN,TOTAL 1.1 mg/dL (0.2-1.0); TOTAL PROTEIN, SERUM 7.2 g/dL (6.4-8.2)
--- NOTE | 2018-06-09 12:52 | NUR ---
CALLED [facility] AND REQUESTED DR TO . ENVELOPE PRESS OPERATOR DR AT BEDSIDE.
--- NOTE | 2018-06-09 13:00 | NUR ---
CALLED [facility] ASKED FOR A TELE BED.
--- NOTE | 2018-06-09 13:19 | NUR ---
TELE BED 111-2 GIVEN. ROMAN RN
--- NOTE | 2018-06-09 14:09 | NUR ---
TELE1/RN REPORT FROM ER REPORT GIVEN BY ER NURSE DEBORAH FOR PT TO BE ADMITTED FOR CHEST PAIN, UNDER THE CARE OF NP. KENDRICK. AWAITING FOR PT'S ARRIVAL.
[2018-06-09 14:15] VITALS: BP 150/66
--- NOTE | 2018-06-09 14:15 | NUR ---
TELE1/APPRENTICE/LINEMAN TO TELE1 - ROOM 111#2 PT ARRIVED TO UNIT VIA GURNEY FROM ER ACCOMPANIED BY ER NURSE DEBORAH AND CHORAL DIRECTOR. PT TRANSFERRED TO HOSPITAL BED. PT A/O X 4, COMPLAINT OF PAIN RATED 7-8/10 IN THE LEFT LEG, LOWER BACK, BACK SHOULDER AND LEFT HIP. ON O2 VIA N/C, SATURATING @ 97%, LUNG SOUNDS CLEAR. ON TELE BOX PLACED, SINUS RHYTHM WITH OCCASIONAL PVCs, NOTED SINUS MERLIN LOWEST AT 50. IV SITE, FLUSHED, PATENT WITH NO S/S OF INFECTION. PT HAS SEVERE LEFT SIDED WEAKNESS. PT WAS ORIENTED TO HIS SURROUNDINGS. AWAITING FOR ADMITTING ORDERS. CL WITHIN REACHED AND SAFETY MAINTAINED.
--- NOTE | 2018-06-09 14:20 | NUR ---
REPORT GIVEN TO CHELSEA ORTIZ FOR JOCELYN; PT WILL BE TRANSPORTED TO 1ST FLOOR VIA [facility]
[2018-06-09] MEDS ORDERED: MAGNESIUM HYDROXIDE 30 ML UDC PO PRN (14:30)
[2018-06-09] MEDS ORDERED: NA PHOS,M-B/NA PHOS,DI-BA 1 EA ENEMA RC PRN (14:30)
[2018-06-09] MEDS ORDERED: ZOLPIDEM TARTRATE 5 MG TABLET PO PRN (14:30)
[2018-06-09] MEDS ORDERED: CALCIUM CARBONATE 500 MG TAB.CHEW PO PRN (14:30)
[2018-06-09] MEDS ORDERED: ACETAMINOPHEN 325 MG TABLET PO PRN (14:30)
[2018-06-09] MEDS ORDERED: NITROGLYCERIN 0.4 MG/TAB BOTTLE SL PRN (14:30)
[2018-06-09] MEDS ORDERED: HYDROCORTISONE CR 30 GM TUBE RC PRN (14:30)
[2018-06-09] MEDS ORDERED: ONDANSETRON HCL/PF 4 MG/2 ML VIAL IVP PRN (14:30)
[2018-06-09] MEDS ORDERED: MAG HYDROX/AL HYDROX/SIMETH 30 ML UDC PO PRN (14:30)
[2018-06-09] MEDS ORDERED: ALBUTEROL FS 2.5 MG/3 ML VIAL.NEB NEB PRN (14:30)
[2018-06-09 16:00] VITALS: BP 150/66
[2018-06-09 16:03] VITALS: BP 150/60
--- NOTE | 2018-06-09 16:15 | NUR ---
TELE1/RN ROUNDS - DR. SHULTZ PT SEEN & EXAMINED BY DR. SHULTZ, WITH VERBAL ORDER RECEIVED AT BEDSIDE TO INCREASE DOSE OF NORTRIPTYLINE TO 50MG, NOTED AND CARRIED.
[2018-06-09] MEDS: LACTOBACILLUS RHAMNOSUS GG 1 EACH CAP.SPRINK PO SCH (16:55)
[2018-06-09] MEDS: PANTOPRAZOLE 40 MG TABLET.DR PO SCH (16:55)
[2018-06-09] MEDS: DOCUSATE SODIUM 100 MG CAPSULE PO SCH (16:56)
[2018-06-09] MEDS: BACLOFEN (10 MG) 10 MG TABLET PO SCH (16:56)
[2018-06-09] MEDS: TIZANIDINE HCL 4 MG TABLET PO SCH (16:56)
[2018-06-09] MEDS: MORPHINE SULFATE INJ 2 MG/ML DISP.SYRIN IV PRN ×2 (16:59→22:33)
[2018-06-09] MEDS: GABAPENTIN 300 MG CAPSULE PO SCH (17:00)
--- NOTE | 2018-06-09 19:26 | NUR ---
TELE1/RN AM SHIFT END NOTES ALL PT'S NEEDS WERE MET. NO ACUTE CHANGE OF CONDITION NOTED SINCE PT WAS ADMITTED TODAY. PT ENDORSED TO PM NURSE TO CONTINUE CARE. CL WITHIN REACHED AND SAFETY MAINTAINED.
[2018-06-09] MEDS: HYDROCODONE/APAP 5/325MG 1 EACH TABLET PO PRN (19:38)
[2018-06-09 20:00] VITALS: BP 136/74
[2018-06-09] MEDS: METHOCARBAMOL (500MG) 500 MG TABLET PO SCH (21:20)
[2018-06-09] MEDS: SENNOSIDES 8.6 MG TABLET PO SCH (21:20)
[2018-06-09] MEDS ORDERED: NORTRIPTYLINE HCL 25 MG CAPSULE PO SCH (22:00)
[2018-06-10] VITALS: BP 141/74
[2018-06-10] MEDS: GABAPENTIN 300 MG CAPSULE PO SCH ×5 (00:29→23:31)
[2018-06-10 04:00] VITALS: BP 149/67
[2018-06-10 07:25] LABS: BASOPHILS # (AUTO) 0.1 /CMM (0.0-0.2); BASOPHILS % (AUTO) 0.7 % (0.0-2.0); EOSINOPHILS % (AUTO) 2.8 % (0.0-6.0); HEMATOCRIT 45 % (39-51); HEMOGLOBIN 15.9 g/dL (13.5-17.5); LYMPHOCYTES # (AUTO) 2.3 /CMM (0.8-4.8); LYMPHOCYTES % (AUTO) 28.2 % (20.0-44.0); MEAN CORPUSCULAR HGB CONC 35 g/dl (31.0-36.0); MEAN CORPUSCULAR VOLUME 86 fL (80-96); MONOCYTES # (AUTO) 0.6 /CMM (0.1-1.30); MONOCYTES % (AUTO) 7.3 % (2.0-12.0); PLATELET COUNT (AUTO) 181 /CMM (150-450); RED BLOOD CELL COUNT(AUTO) 5.28 MIL/uL (4.5-6.0); WHITE BLOOD COUNT (AUTO) 8.1 K/uL (4.3-11.0)
[2018-06-10 07:34] LABS: CALCIUM, SERUM 8.8 mg/dL (8.5-10.1); CREATININE 0.9 mg/dL (0.6-1.3); MAGNESIUM 2.1 mg/dL (1.8-2.4); PHOSPHORUS 3.9 mg/dL (2.5-4.9); POTASSIUM 4.2 mmol/L (3.5-5.1)
[2018-06-10 08:00] VITALS: BP 129/64
[2018-06-10] MEDS: DOCUSATE SODIUM 100 MG CAPSULE PO SCH ×2 (08:07→16:55)
[2018-06-10] MEDS: ASPIRIN 81 MG TAB.CHEW PO SCH (08:07)
[2018-06-10] MEDS: LACTOBACILLUS RHAMNOSUS GG 1 EACH CAP.SPRINK PO SCH ×2 (08:07→16:55)
[2018-06-10] MEDS: PANTOPRAZOLE 40 MG TABLET.DR PO SCH (08:07)
[2018-06-10] MEDS: CHOLECALCIFEROL 1,000 UNIT TABLET (VIT D3) PO SCH (08:07)
[2018-06-10] MEDS: TIZANIDINE HCL 4 MG TABLET PO SCH ×3 (08:08→16:55)
[2018-06-10] MEDS: BACLOFEN (10 MG) 10 MG TABLET PO SCH ×3 (08:08→16:55)
[2018-06-10] MEDS: CYANOCOBALAMIN 500 MCG TABLET PO SCH (08:08)
[2018-06-10] MEDS: LOSARTAN POTASSIUM 50 MG TABLET PO SCH (08:09)
[2018-06-10] MEDS: METHOCARBAMOL (500MG) 500 MG TABLET PO SCH ×2 (08:09→20:03)
--- NOTE | 2018-06-10 08:15 | NUR ---
TELE1/RN AM NOTES RECEIVED PATIENT THIS MORNING WITH STABLE VITAL SIGNS, NO S/S OF DISTRESS, ADMINISTERED MORNING MEDICATIONS ORDERED AND UPDATED DR. KHALIL ON PATIENTS SINUS BRADYCARDIA OF [address] KHALIL TOLD TO ME MONITOR AND CONTINUE CARE
[2018-06-10] MEDS ORDERED: FLUTICASONE PROPIONATE 16 GM BOTTLE NS PRN (09:00)
--- NOTE | 2018-06-10 09:25 | NUR ---
WOUND CARE CONSULT: PT PRESENTS WITH LEFT SIDED WEAKNESS AND SHARP JAGGED TOENAILS, PRESENT ON ADMISSION. PT WEARING SPLINT ON LEFT WRIST. RECOMMENDATIONS MADE FOR SKIN PROTECTION. DISCUSSED WITH NURSING STAFF. PT STATES IS MOSTLY CONTINENT. CURRENT LANCE SCORE IS 17. BED EXTENSION REQUESTED FROM [facility]. WILL SEE PRN. IN AGREEMENT WITH PLAN OF CARE.
[2018-06-10] MEDS ORDERED: Z GUARD REMEDY 2 OZ OINT TP PRN (09:30)
--- NOTE | 2018-06-10 09:30 | NUR ---
TELE1/RN NOTES WOUND CARE NURSE LORI CAME AND ASSESSED PATIENT UPDATED SKIN CARE WITH Z GUARD PROTECTION
[2018-06-10] MEDS: MORPHINE SULFATE INJ 2 MG/ML DISP.SYRIN IV PRN ×3 (11:55→20:03)
--- NOTE | 2018-06-10 12:46 | NUR ---
TELE1/RNPM NOTES PATIENT HAD ECHOCARDIOGRAM AND EKG ORDERED SIGNED CONSENT FOR ANGIO W/ CONTRAST AND NEW 18 GAUGE IV WAS INSERTED IN THE RIGHT AC BY SENIOR TAX ANALYST WITH GOOD BLOOD RETURN NOTED NO S/S OF INFECTION OR INFILTRATION PATIENT TOLERATED ALL PROCEDURES WELL. CLIENT COMPLAINED OF PAIN 8/10 AND WAS GIVEN MORPHINE 4MG RE-ASSESSED PAIN AND FOUND IT TO BE 4/10 AND TOLERABLE FOR CLIENT.
[2018-06-10] MEDS ORDERED: CT SWABBABLE VALVE TRANS SET 1 EA INFUS.SET MC ONE (13:59)
[2018-06-10] MEDS ORDERED: IV NS 0.9% 250 ML IV ONE (13:59)
[2018-06-10] MEDS ORDERED: METOPROLOL TARTRATE INJ 5 MG/5 ML AMPUL ONE ×2 (13:59→14:23)
[2018-06-10] MEDS ORDERED: IOHEXOL-350 100 ML VIAL IV ONE (13:59)
--- NOTE | 2018-06-10 14:15 | NUR ---
MS1/RN OFF TO - CT ANGIOGRAM PT LEFT VIA BED FOR CT ANGIOGRAM IN STABLE CONDITION.
--- NOTE | 2018-06-10 14:24 | NUR ---
TELE1/RNECHOCARDIOGRAM ECHO WAS DONE AND EJECTION FRACTION WAS 60 CLIENT TOLERATED PROCEDURE WELL.
[2018-06-10] MEDS ORDERED: IV NS 0.9% 500 ML IV ONE (14:30)
--- NOTE | 2018-06-10 14:50 | NUR ---
MS1/RN BACK TO ROOM S/P CT ANGIOGRAM. PT RETURNED TO HIS ROOM. ADVISE PT TO INCREASE WATER INTAKE FLUSH OUT DYE FROM THE PROCEDURE. MONITORING.
[2018-06-10 15:51] VITALS: BP 121/68
--- NOTE | 2018-06-10 15:56 | NUR ---
TELE1/RN NOTES BOTH PRIMARY AND PAIN MANAGEMENT DOCTOR ARE WITH PATIENT SPEAKING ABOUT HIS TREATMENT PLAN.
[2018-06-10 16:00] VITALS: BP 121/68
--- NOTE | 2018-06-10 19:15 | NUR ---
MS/RN INITIAL NOTES RECEIVED PT IN BED, A/OX4. ON 2L O2 VIA NC, NO SOB NOTED. PT C/O PAIN ON BACK WITH PAIN SCALE OF 8/10. WILL ADMINISTER PAIN MEDS ORDERED. RHAND G18 HEPLOCK INTACT AND PATENT. SAFETY MEASURES IN PLACED. CALL LIGHT WITHIN REACH. PER AM RN ENDORSEMENT, PT IS FOR DC PLANNING IN AM, PT AWARE. WILL CONT TO MONITOR
--- NOTE | 2018-06-10 19:21 | NUR ---
MESURGE1/RN HAND OFF NOTES (PM) PATIENT WAS HANDED OFF TO NIGHT NURSE IN STABLE CONDITION EXPLAINED THAT DC IS SCHEDULED FOR TOMORROW AND TO COMPLETE DC PLANNING. CONTINUE CARE UNTIL DC. REPORTED LABORATORY RESULTS.
[2018-06-10 20:00] VITALS: BP 124/65
[2018-06-10] MEDS: SENNOSIDES 8.6 MG TABLET PO SCH (21:48)
[2018-06-10] MEDS: NORTRIPTYLINE HCL 25 MG CAPSULE PO SCH (21:48)
[2018-06-10] MEDS ORDERED: NORTRIPTYLINE HCL 25 MG CAPSULE PO SCH (22:00)
[2018-06-10] MEDS: HYDROCODONE/APAP 5/325MG 1 EACH TABLET PO PRN (23:31)
[2018-06-11 04:00] VITALS: BP 131/88
[2018-06-11] MEDS: MORPHINE SULFATE INJ 2 MG/ML DISP.SYRIN IV PRN ×2 (05:20→23:41)
[2018-06-11] MEDS: GABAPENTIN 300 MG CAPSULE PO SCH ×3 (05:20→17:22)
--- NOTE | 2018-06-11 07:01 | NUR ---
RN NOTES PT IN STABLE CONDITION. NO ACUTE CHANGES THROUGHOUT SHIFT. NO OVERT SIGNS OF BLEEDING NOTED. ALL NEEDS ANTICIPATED. SAFETY MEASURES OBSERVED AT ALL TIMES. ENDORSED TO AM RN FOR JOCELYN
[2018-06-11 07:13] LABS: CREATININE 0.9 mg/dL (0.6-1.3); MAGNESIUM 2.2 mg/dL (1.8-2.4); POTASSIUM 4.4 mmol/L (3.5-5.1)
--- NOTE | 2018-06-11 07:20 | NUR ---
MS/RN OPENING NOTES RECEIVED REPORT FROM NURSE. PT IN BED, A/OX4. ON 2L O2 VIA NC, NO SOB NOTED. PT C/O PAIN ON BACK . WILL ADMINISTER PAIN MEDS ORDERED. R HAND G18 HEPLOCK INTACT AND PATENT. SAFETY MEASURES IN PLACED. CALL LIGHT WITHIN REACH. SRX2.BED ALARM ON.WILL CONTINUE TO MONITOR.
[2018-06-11] MEDS: PANTOPRAZOLE 40 MG TABLET.DR PO SCH (07:42)
[2018-06-11 08:00] VITALS: BP 106/54
[2018-06-11] MEDS: CYANOCOBALAMIN 500 MCG TABLET PO SCH (08:58)
[2018-06-11] MEDS: TIZANIDINE HCL 4 MG TABLET PO SCH ×3 (08:59→16:18)
[2018-06-11] MEDS: LOSARTAN POTASSIUM 50 MG TABLET PO SCH (08:59)
[2018-06-11] MEDS: BACLOFEN (10 MG) 10 MG TABLET PO SCH ×3 (09:00→16:18)
[2018-06-11] MEDS: METHOCARBAMOL (500MG) 500 MG TABLET PO SCH ×2 (09:00→22:09)
[2018-06-11] MEDS: ASPIRIN 81 MG TAB.CHEW PO SCH (09:01)
[2018-06-11] MEDS: DOCUSATE SODIUM 100 MG CAPSULE PO SCH ×2 (09:02→16:18)
[2018-06-11] MEDS: CHOLECALCIFEROL 1,000 UNIT TABLET (VIT D3) PO SCH (09:02)
[2018-06-11] MEDS: LACTOBACILLUS RHAMNOSUS GG 1 EACH CAP.SPRINK PO SCH ×2 (09:03→16:18)
[2018-06-11] MEDS: HYDROCODONE/APAP 5/325MG 1 EACH TABLET PO PRN (14:11)
[2018-06-11 16:00] VITALS: BP 127/64
--- NOTE | 2018-06-11 16:00 | NUR ---
MS RN NOTE SEEN BY LIOR POLK ,UPDATED ABOUT PATIENT CONDITION WITH LABS.MADE AWARE THAT PATIENT NOT ON ANY DVT PROPHYLAXIS.GOT NEW ORDERS.WILL CONTINUE TO MONITOR.
--- NOTE | 2018-06-11 19:21 | NUR ---
MS/RN CLOSING NOTES PT IN BED, A/OX4. ON 2L O2 VIA NC, NO SOB NOTED. R HAND G18 HEPLOCK INTACT AND PATENT. SAFETY MEASURES IN PLACED. CALL LIGHT WITHIN REACH. SRX2.BED ALARM ON.ENDORSED TO PM NURSE FOR JOCELYN.
--- NOTE | 2018-06-11 19:40 | NUR ---
MACKENZIE RN OPENING NOTES RECEIVED BEDSIDE REPORT FROM AM NURSE. PT IS IN BED, A/OX4. ON 2L O2 VIA NC, NO SOB NOTED, PATIENT C/O PAIN ON BACK AND LEFT HIP . WILL ADMINISTER PAIN MEDS ORDERED. R HAND G18 HEPLOCK INTACT AND PATENT. SAFETY MEASURES IN PLACED. CALL LIGHT WITHIN REACH. SRX2.BED ALARM ON.WILL CONTINUE TO MONITOR PATIENT CLOSELY.
[2018-06-11 20:00] VITALS: BP 124/56
[2018-06-11 20:03] VITALS: BP 124/56
[2018-06-11] MEDS ORDERED: ENOXAPARIN SODIUM 40 MG/0.4 ML DISP.SYRIN SQ SCH (21:00)
[2018-06-11] MEDS: SENNOSIDES 8.6 MG TABLET PO SCH (22:08)
[2018-06-11] MEDS: NORTRIPTYLINE HCL 25 MG CAPSULE PO SCH (22:09)
[2018-06-12] MEDS: GABAPENTIN 300 MG CAPSULE PO SCH ×4 (00:41→17:35)
[2018-06-12 04:00] VITALS: BP 128/60
[2018-06-12 04:28] VITALS: BP 128/60
[2018-06-12 08:00] VITALS: BP 121/73
--- NOTE | 2018-06-12 08:28 | NUR ---
RN INITAL NOTES RECEIVED PT AWAKE AND ALERT, RESTING IN BED AND NOTED WITH GEN BODY PAIN BUT DENIES CHEST PAIN. NO SOB NOTED AT THIS TIME. SAFETY ENSURED AND WILL MONITOR.
[2018-06-12] MEDS: BACLOFEN (10 MG) 10 MG TABLET PO SCH ×3 (09:39→17:11)
[2018-06-12] MEDS: TIZANIDINE HCL 4 MG TABLET PO SCH ×3 (09:39→17:10)
[2018-06-12] MEDS: METHOCARBAMOL (500MG) 500 MG TABLET PO SCH (09:39)
[2018-06-12] MEDS: CHOLECALCIFEROL 1,000 UNIT TABLET (VIT D3) PO SCH (09:40)
[2018-06-12] MEDS: CYANOCOBALAMIN 500 MCG TABLET PO SCH (09:40)
[2018-06-12] MEDS: DOCUSATE SODIUM 100 MG CAPSULE PO SCH ×2 (09:41→17:11)
[2018-06-12] MEDS: LOSARTAN POTASSIUM 50 MG TABLET PO SCH (09:41)
[2018-06-12] MEDS: PANTOPRAZOLE 40 MG TABLET.DR PO SCH (09:41)
[2018-06-12] MEDS: LACTOBACILLUS RHAMNOSUS GG 1 EACH CAP.SPRINK PO SCH ×2 (09:41→17:14)
[2018-06-12] MEDS: HYDROCODONE/APAP 5/325MG 1 EACH TABLET PO PRN (12:43)
[2018-06-12 16:00] VITALS: BP_SYST 110; BP_SYST 128; BP_DIAS 57; BP_DIAS 78
--- NOTE | 2018-06-12 18:14 | NUR ---
CLOSING NOTES PT AWAKE , NO SIGNIFICANT CHANGE NOTED. NO CHEST PAIN. AWAITING FOR PICKUP, TO BE DISCHARGED TO [facility] AGRRED BY PT AND CM. ENDORSED FOR CONITNUITY OF CARE IN STABLE CONDITION
== END 2018-06-12 21:19 | DRG 206 ==
LOC: ER 11:25 → TELE1 13:25 → MEDSG1 06-10 09:00
PROVIDERS: ADMIT Nurse Practitioner Acute Care; ATTEND Internal Medicine
PROC: 0HBRXZZ Excision of Toe Nail, External Approach (ICD-10-PCS; principal; 2018-06-10)
DX: M94.0 Chondrocostal junction syndrome [Tietze] (principal); E44.1 Mild protein-calorie malnutrition; D68.59 Other primary thrombophilia; I69.354 Hemiplegia and hemiparesis following cerebral infarction affecting left non-dominant side; K21.9 Gastro-esophageal reflux disease without esophagitis; E78.5 Hyperlipidemia, unspecified; I25.10 Atherosclerotic heart disease of native coronary artery without angina pectoris; E11.9 Type 2 diabetes mellitus without complications; L60.3 Nail dystrophy; F17.210 Nicotine dependence, cigarettes, uncomplicated; G89.4 Chronic pain syndrome; J44.9 Chronic obstructive pulmonary disease, unspecified; M48.02 Spinal stenosis, cervical region; G62.89 Other specified polyneuropathies; F32.9 Major depressive disorder, single episode, unspecified; M81.0 Age-related osteoporosis without current pathological fracture; M19.90 Unspecified osteoarthritis, unspecified site; Z99.3 Dependence on wheelchair; Z74.01 Bed confinement status; Z68.31 Body mass index [BMI] 31.0-31.9, adult; N20.0 Calculus of kidney; K80.20 Calculus of gallbladder without cholecystitis without obstruction; R00.1 Bradycardia, unspecified; M47.816 Spondylosis without myelopathy or radiculopathy, lumbar region
CPT/HCPCS: 36415; 71045-TC; 75574; 80048-TC; 80061-TC; 80076-TC; 83735-TC; 84100-TC; 84484-TC; 85025-TC; 87081-TC; 93307-TC; G0378; J1650; J2270; J3490; J7050; Q9967